=== PATIENT | male | born 1940 | race Caucasian/White ===

== ENCOUNTER 2018-04-29 13:52 | Emergency (ER) | payer OTHER, MEDICARE ==
[2018-04-29] MEDS ORDERED: NS 1,000 ML IV ONE (14:07)
--- NOTE | 2018-04-29 14:11 | EDPHY ---
H & P Stated Complaint: 2 min episode leaning against wall drooling w/ alfred bryanemilie. BS 200 Time Seen by Provider: 04/29/18 13:54 HPI/ROS: CHIEF COMPLAINT: Altered mental status HISTORY OF PRESENT ILLNESS: The patient is a 77-year-old man who was waiting in line at [employer] when they found him leaning against a wall drooling. They said that this episode lasted for about 2 min and then he returned to acting normally. During those 2 min however they called paramedics. When paramedics arrived the patient refused care or transport. He states that he has these type of "space-outs". They felt that he was confused because he could not name the president or the year. The patient was seen here in 2013 for a CVA that apparently resolved as well as dementia. The patient tells me that he did not have a stroke but had an anxiety attack. He continues to refuse care and states that he feels fine. He has a diffuse scaly rash which he states is from working in the garden a few days ago in the usually goes away after about a week. No fevers. No nausea vomiting or diarrhea. He states that he has these "space-out" episodes 2-3 times per week. He is not concerned about them. He states that this is why he stopped driving. He does live alone. Severity: Moderate Modifying factors: Improved with time REVIEW OF SYSTEMS: Constitutional: denies: chills, fever, recent illness, recent injury EENTM: denies: blurred vision, double vision, nose congestion Respiratory: denies: cough, shortness of breath Cardiac: denies: chest pain, irregular heart rate, lightheadedness, palpitations Gastrointestinal/Abdominal: denies: abdominal pain, diarrhea, nausea, vomiting, blood streaked stools Genitourinary: denies: dysuria, frequency, hematuria, pain Musculoskeletal: denies: joint pain, muscle pain Skin: denies: lesions, rash, jaundice, bruising Neurological: denies: headache, numbness, paresthesia, tingling, dizziness, weakness Hematologic/Lymphatic: denies: blood clots, easy bleeding, easy bruising Immunologic/allergic: denies: HIV/AIDS, transplant 10 systems reviewed and negative except as noted EXAM: GENERAL: Well-appearing, well-nourished and in no acute distress. HEAD: Atraumatic, normocephalic. EYES: Pupils equal round and reactive to light, extraocular movements intact, sclera anicteric, conjunctiva are normal. ENT: TMs normal, nares patent, oropharynx clear without exudates. Moist mucous membranes. NECK: Normal range of motion, supple without lymphadenopathy or JVD. LUNGS: Breath sounds clear to auscultation bilaterally and equal. No wheezes rales or rhonchi. HEART: Regular rate and rhythm without murmurs, rubs or gallops. ABDOMEN: Soft, nontender, normoactive bowel sounds. No guarding, no rebound. No masses appreciated. BACK: No CVA tenderness, no spinal tenderness, step-offs or deformities EXTREMITIES: Normal range of motion, no pitting or edema. No clubbing or cyanosis. NEUROLOGICAL: Cranial nerves II through XII grossly intact. Normal speech, normal gait. 5/5 strength, normal movement in all extremities, normal sensation , normal reflexes PSYCH: Patient is now able to answer all questions appropriately other than the year and the president which she states he does not know a baseline. He is able to care and a normal conversation. SKIN: Diffuse scaly rash worse on back. signs of itching. Source: Patient Exam Limitations: No limitations - Medical/Surgical History Hx Asthma: No Hx Chronic Respiratory Disease: No Hx Diabetes: No Hx Cardiac Disease: No Hx Renal Disease: No Hx Cirrhosis: No Hx Alcoholism: No Hx HIV/AIDS: No Hx Splenectomy or Spleen Trauma: No Other PMH: anxiety - Social History Smoking Status: Never smoked Alcohol Use: Sober Drug Use: None Constitutional: Initial Vital Signs Temperature (C) 36.8 C 04/29/18 14:00 Heart Rate 77 04/29/18 14:00 Respiratory Rate 16 04/29/18 14:00 Blood Pressure 158/79 H 04/29/18 14:00 O2 Sat (%) 97 04/29/18 14:00 O2 Delivery Mode Room Air Allergies/Adverse Reactions: No Known Allergies Allergy (Verified 11/04/13 13:18) Home Medications: Medication Instructions Recorded NK [No Known Home Meds] 11/04/13 Medical Decision Making - Diagnostics EKG Interpretation: An EKG obtained and was read and documented in trace view. Please see trace view for full reading and report. Sinus rhythm, narrow QRS, no acute ischemic changes Imaging Results: Imaging Impressions Head CT 04/29/18 14:07 Impression: 1. Stable mild to moderate age-related atrophy. 2. No hemorrhage, mass effect, or definite acute peripheral infarct. 3. Interval progression of moderate nonspecific hypodensities in the white matter of bilateral cerebral hemispheres. Differential diagnosis includes microvascular ischemic disease, post-infectious/post-inflammatory sequela, atypical demyelinating disease, or migraine-related sequela. Small white matter lacunar infarcts may also have this appearance. 4. Moderate bilateral cerumen in the external auditory canal. 5. Bilateral dental disease with increased lucency around roots alveolar ridge as detailed above left side more than right If symptoms worsen, additional imaging may be necessary. Findings discussed with Eron Olson M.D. at 14:38 hour, 04/29/2018. Imaging: Discussed imaging studies w/ call out operator Radiologist ED Course/Re-evaluation: Patient has a diffuse scaly rash which she is not concerned about. I recommended lab work and imaging. He initially tried to refuse but states that he can't do it as long as he can be at his appointment at 5:00 p.m.. Case management has consulted with the patient. The patient refuses referral to primary care doctor. He obviously refuses admission. He does except to have "[employer]", an illness management company come to his home. This is a service were a MD or PA comes to his home for evaluations and assessments. This is been arranged by case management. Patient continues to act normally and answer questions appropriately. He is drinking water to drink give us a urine sample. He urinated here earlier without giving a sample. 4:12 p.m. the patient continues to feel well. He is answering all questions appropriately. He refuses further treatment. He has given this information for [employer] to come visit him at home. 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 Differential Diagnosis: Partial list of the Differential diagnosis considered include but were not limited to; absence seizure, TIA, dementia and although unlikely based on the history and physical exam, I also considered CVA, infection, tumor. I discussed these differential diagnoses and the plan with the patient as well as the usual and expected course. The patient understands that the diagnosis is provisional and that in medicine we are not always correct and that further workup is often warranted. Usual and customary warnings were given. All of the patient's questions were answered. The patient was instructed to return to the emergency department should the symptoms at all worsen or return, otherwise to followup with the physician as we discussed. - Data Points Laboratory Results: Laboratory Results 04/29/18 14:11 04/29/18 14:11 04/29/18 04/29/18 04/29/18 14:11 14:11 11:54 WBC 8.72 10^3/uL 10^3/uL (3.80-9.50) RBC 4.59 10^6/uL 10^6/uL (4.40-6.38) Hgb 14.6 g/dL g/dL (13.7-17.5) Hct 43.9 % % (40.0-51.0) MCV 95.6 fL fL (81.5-99.8) MCH 31.8 pg pg (27.9-34.1) MCHC 33.3 g/dL g/dL (32.4-36.7) RDW 13.8 % % (11.5-15.2) Plt Count 201 10^3/uL 10^3/uL (150-400) MPV 12.8 fL H fL (8.7-11.7) Neut % (Auto) 64.3 % % (39.3-74.2) Lymph % (Auto) 17.0 % % (15.0-45.0) [place] % (Auto) 9.7 % % (4.5-13.0) Eos % (Auto) 8.4 % H % (0.6-7.6) Baso % (Auto) 0.5 % % (0.3-1.7) Nucleat RBC Rel Count 0.0 % % (0.0-0.2) Absolute Neuts (auto) 5.61 10^3/uL 10^3/uL (1.70-6.50) Absolute Lymphs (auto) 1.48 10^3/uL 10^3/uL (1.00-3.00) Absolute Monos (auto) 0.85 10^3/uL H 10^3/uL (0.30-0.80) Absolute Eos (auto) 0.73 10^3/uL H 10^3/uL (0.03-0.40) Absolute Basos (auto) 0.04 10^3/uL 10^3/uL (0.02-0.10) Absolute Nucleated RBC 0.00 10^3/uL 10^3/uL (0-0.01) Immature Gran % 0.1 % % (0.0-1.1) Immature Gran # 0.01 10^3/uL 10^3/uL (0.00-0.10) Sodium 140 mEq/L mEq/L (135-145) Potassium 4.4 mEq/L mEq/L (3.5-5.2) Chloride 108 mEq/L mEq/L (97-110) Carbon Dioxide 25 mEq/l mEq/l (22-31) Anion Gap 7 mEq/L mEq/L (6-14) BUN 29 mg/dL H mg/dL (7-23) Creatinine 1.2 mg/dL mg/dL (0.7-1.3) Estimated GFR 59 Glucose 97 mg/dL mg/dL (70-100) Calcium 8.7 mg/dL mg/dL (8.5-10.4) Urine Color YELLOW Urine Appearance CLEAR Urine pH 5.0 (5.0-7.5) Ur Specific [place] 1.024 (1.002-1.030) Urine Protein NEGATIVE (NEGATIVE) Urine Ketones NEGATIVE (NEGATIVE) Urine Blood NEGATIVE (NEGATIVE) Urine Nitrate NEGATIVE (NEGATIVE) Urine Bilirubin NEGATIVE (NEGATIVE) Urine Urobilinogen 2.0 EU H EU (0.2-1.0) Ur Leukocyte Esterase NEGATIVE (NEGATIVE) Urine RBC 1-3 /hpf /hpf (0-3) Urine WBC 1-3 /hpf /hpf (0-3) Ur Epithelial Cells NONE SEEN /lpf /lpf (NONE-1+) Urine Mucus TRACE /lpf /lpf (NONE-1+) Urine Glucose NEGATIVE (NEGATIVE) Medications Given: Discontinued Medications Sodium Chloride (Ns) 1,000 mls @ 0 mls/hr IV EDNOW ONE; Wide Open PRN Reason: Protocol Stop: 04/29/18 14:08 Last Admin: 04/29/18 14:30 Dose: 1,000 mls Departure - Departure Disposition: Home, Routine, Self-Care Clinical Impression: Typical absence seizure Condition: Good Instructions: New Onset Absence Seizures in Adults (ED) Referrals: Patient,NotPresent [Unknown] - As per Instructions
[2018-04-29 14:25] LABS: PLATELET COUNT 201 10^3/uL (150-400)
--- NOTE | 2018-04-29 14:40 | CPEKG ---
Test Reason : OPEN Blood Pressure : / mmHG Vent. Rate : 065 BPM Atrial Rate : 065 BPM P-R Int : 109 ms QRS Dur : 099 ms QT Int : 410 ms P-R-T Axes : -07 -89 040 degrees QTc Int : 427 ms Sinus rhythm Short MN interval Left anterior fascicular block Low voltage, extremity leads Confirmed by Eron Olson ([id number]) on 04/29/2018 2:39:45 PM Referred By: Confirmed By:Eron Olson
--- NOTE | 2018-04-29 15:37 | ASMTCMCOM ---
CM Note CM Note Notes: Patient chart reviewed (see ED report). Patient is alert, pleasant and anxious to get back to the [facility] in [place]. Patient lives alone in a ranch [place] in [place] and is active with the [employer] in [place]. He tells me that he has choir practice at the [employer] this evening. Patient denies having a PCP and tells me he has never needed this because he is healthy. Patient does not have any children or "any family", but is "very active". Patient tells me that he is no longer driving and is comfortable taking the bus where he needs to go. I talked with patient about whether he would be "okay" with someone reaching out to him at home to follow up after his ED visit. He states that he is okay with this. I have reached out to [facility] and spoke with Shereen re my concerns that patient have follow up/establish a PCP and/or community support. Patient does not have Medicaid but is eligible for AIMS/Physician referral with his Medicare. This CM sent referral via [employer] (with confirmation of receipt). CM available as needed Date Signed: 04/29/2018 03:36 PM Electronically Signed By:Lois Tijerina RN
[2018-04-29 16:25] VITALS: BP 135/84
== END 2018-04-29 16:25 | disposition home or self-care (01) ==
LOC: EDUNIT#
DX: G40.A09 Absence epileptic syndrome, not intractable, without status epilepticus (principal); F41.9 Anxiety disorder, unspecified; E86.9 Volume depletion, unspecified; Z86.73 Personal history of transient ischemic attack (TIA), and cerebral infarction without residual deficits